=== PATIENT | female | born 1975 | race African-American/Black ===

== ENCOUNTER 2021-03-29 00:13 | Inpatient (IN) | payer OTHER ==
[~2021-03-29] VITALS: Ht 160 cm; Wt 81.7 kg
[2021-03-29] VITALS (73 sets, daily range): BP systolic 80–144; BP diastolic 56–86
[2021-03-29] MEDS ORDERED: NORVASC5 MG PO (01:34)
[2021-03-29] MEDS ORDERED: TYLENOL325 MG PO (01:34)
[2021-03-29] MEDS ORDERED: BACLOFEN 10MG T10 MG PO (01:35)
[2021-03-29] MEDS ORDERED: ARGINAID POWDE1 EACH PO (01:35)
[2021-03-29] MEDS ORDERED: WELLBUTRIN XL150 MG PO (01:37)
[2021-03-29] MEDS ORDERED: DALFAMPRIDINE E10 MG PO (01:38)
[2021-03-29] MEDS ORDERED: CRANBERRY450 M2 PO (01:38)
[2021-03-29] MEDS ORDERED: CLONAZEPAM 0.50.5 M1 PO (01:38)
[2021-03-29] MEDS ORDERED: DERMACERIN CRE454 GM TOP (01:39)
[2021-03-29] MEDS ORDERED: IRON325 PO (01:40)
[2021-03-29] MEDS ORDERED: DULOXETINE HCL20 MG PO (01:40)
[2021-03-29] MEDS ORDERED: FUROSEMIDE 20 M20 MG PO (01:41)
[2021-03-29] MEDS ORDERED: GABAPENTIN800 M1 PO (01:41)
[2021-03-29] MEDS ORDERED: ZESTRIL10 MG PO (01:42)
[2021-03-29] MEDS ORDERED: LOPERAMIDE2 MG PO (01:42)
[2021-03-29] MEDS ORDERED: MEDROXYPROGESTE10 MG PO (01:43)
[2021-03-29] MEDS ORDERED: MILK OF MA400 MG/5 M PO (01:43)
[2021-03-29] MEDS ORDERED: VITRUM SENIOR1 EACH PO (01:43)
[2021-03-29 01:44] LABS: ABSOLUTE NEUTROPHILS 8.4 thou/uL (1.4-8.2); BASOPHILS 0.1 % (0.0-2.0); HEMATOCRIT 39.3 % (37.0-47.0); HEMOGLOBIN 13.1 gm/dL (12.0-15.0); MCH 31.4 pg (26.0-34.0); MCHC 33.3 g/dL (28.0-37.0); MONOCYTES 14.1 % (1.0-8.0); PLATELET COUNT 278 thou/uL (150-400); POLYS 80.8 % (36.0-66.0); RBC 4.18 mil/uL (4.20-5.00); WBC 10.4 thou/uL (4.0-11.0)
[2021-03-29] MEDS ORDERED: OXYBUTYNIN 5 MG5 M2 PO (01:44)
[2021-03-29] MEDS ORDERED: PERCOCET 7.5-31 EAC1 PO (01:44)
[2021-03-29] MEDS ORDERED: POTASSIUM CHLO10 MEQ PO (01:45)
[2021-03-29 01:46] LABS: CALCIUM 8.8 mg/dL (8.5-10.1); CREATININE 0.7 mg/dL (0.6-1.0); POTASSIUM 4.5 mmol/L (3.5-5.1)
[2021-03-29] MEDS ORDERED: FLOMAX0.4 MG PO (01:46)
[2021-03-29] MEDS ORDERED: RISPERDAL4 M1 PO (01:46)
[2021-03-29] MEDS ORDERED: TRAMADOL 50 MG50 MG PO (01:46)
[2021-03-29] MEDS ORDERED: VITAMIN C500 M1 PO (01:47)
[2021-03-29] MEDS ORDERED: TRAZODONE HCL50 MG PO (01:47)
[2021-03-29 01:51] LABS: URINE BILIRUBIN 1+ (Negative); URINE BLOOD TRACE (Negative); URINE CLARITY SL CLOUDY; URINE COLOR ORANGE; URINE GLUCOSE-RANDOM* NEGATIVE (Negative); URINE KETONES NEGATIVE (Negative); URINE LEUKOCYTES-REFLEX TRACE (Negative); URINE PROTEIN (DIPSTICK) TRACE (Negative); URINE SPECIFIC GRAVITY >= 1.030 (1.005-1.035)
[2021-03-29 01:52] LABS: ALBUMIN 2.6 g/dL (3.4-5.0); TOTAL BILIRUBIN 0.8 mg/dL (0.2-1.0); TOTAL PROTEIN 6.5 g/dL (6.4-8.2)
[2021-03-29 01:54] LABS: URINE NITRITE-REFLEX POSITIVE (Negative)
[2021-03-29 02:02] LABS: CALCIUM OXALATE 0-3 Few /LPF (None Seen); HYALINE CASTS 0-3 Few /LPF (None Seen); MUCUS 0-3 Light strn/LPF (None Seen); SQUAMOUS 0-3 Few /LPF (0-3); URINE RBC 1-2 Rare /HPF (NONE SEEN); URINE WBC-REFLEX 0-5 Rare /HPF (0-5)
[2021-03-29 02:14] LABS: APTT 24.1 Seconds (24.5-32.8); INR 1.2; PROTIME 12.1 Seconds (9.3-11.4)
[2021-03-29 04:34] LABS: AMP/METHAMP Negative (Negative); BARBITURATES Negative (Negative); BENZODIAZEPINES Negative (Negative); COCAINE Negative (Negative); METHADONE Negative (Negative); OPIATES Negative (Negative); PCP Negative (Negative)
[2021-03-29 04:40] LABS: BE(vivo) -2.2 mmol/L (-2 to +3); HCO3 21.7 mmol/L (22.0-26.0); PCO2 34.6 mmHg (35.0-45.0); PO2 272.6 mmHg (80.0-100.0); pH 7.415 (7.360-7.450); sO2 99.6 % (92.0-98.0)
--- NOTE | 2021-03-29 06:33 | NUR ---
Pt transported from ED to ICU room 244 @ 0430 with RN/RT/and vent with versed drip continued to floor. Pt's admission started but pt unable to sign due to being sedated and unresponsive. spoke to Marquita Velásquez (RN) from her facility that knows her well. Marquita states that pt only contact is her mother but she is unable to contact her because the phone number may not be correct. SHe states that pt is total care at her facilty and PT/OT. she states that pt smokes and has someone help her smoke d/t her MS. Juárez will get ahold of their CM and will be in close contact with us.
--- NOTE | 2021-03-29 09:00 | NUR ---
chart review. discussed during am rounds. unable to visited with rubina kevin on vent. cm called her mom jean # [phone], cell # [phone]. she was unaware that her daughter was in the hospital. " use cell phone it works, home phone doesnt always work. lives at [facility] for almost a year. uses motorized scooter, i bring her cig and pay her rent, dpoa was done at [facility]. i taking care of grandson 12years old and she has daughter who 17 years old. havent been able to visit with her with covid no visitor at [facility]. i will be up to see her and would like to talk with nurse"/jean. will cont following as needed for dc needs.
--- NOTE | 2021-03-29 09:42 | NUR ---
Assess due to sepsis. Hx MS, admitted from long-term. Required intubation for airway protection. ICU rounds-pt alert, following commands and will likely be extubated soon. NH records show pt eats regular diet. Has small shearing breakdown. Wt hx unknown. BG are elevated over 200. Follow for timely extubation and diet advance, may need carb control diet. Low nutrition risk
[2021-03-29] MEDS ORDERED: AAA-MED REC COMPLETE PO (09:49)
--- NOTE | 2021-03-29 11:39 | NUR ---
SPOKE W/ GRACE FROM [facility], UPDATED ON PT CONDITION AND TREATMENT. ALSO SPOKE W/ PT'S MOTHER, KRISTYN, UPDATED ON PT CONDITION AND TREATMENT. KRISTYN STATED SHE WOULD BE UP TO VISIT SOON. KRISTYN STATED THAT SHE CARES FOR THE PT'S TEENAGE CHILDREN, AGES 12 AND 14. PROVIDED W/ EDUCATION REGARDING VISITING RESTRICTIONS AND VISITING HOURS. KRISTYN VERBALIZED UNDERSTANDING. REASSURANCE AND EMOTIONAL SUPPORT PROVIDED.
--- NOTE | 2021-03-29 16:48 | NUR ---
PT REMAINS INTUBATED, LIGHTLY SEDATED. PT WILL OPEN EYES TO VOICE, FOLLOW COMMANDS, AND NOD HEAD YES/NO APPROPRIATELY. FIO2 TITRATED DOWN TO 30% TODAY. VS REMAIN STABLE THROUGHOUT THE DAY WITHOUT THE NEED FOR PRESSORS. URINE OUTPUT ADEQUATE. CDIFF TESTING WAS NEGATIVE, BUT WATERY STOOL CONTINUES VIA FMS. OVERALL, PT PROGRESSING TOWARD GOALS.
[2021-03-30] VITALS (45 sets, daily range): BP systolic 119–170; BP diastolic 64–101
[2021-03-30 05:00] LABS: HEMATOCRIT 30.7 % (37.0-47.0); MCH 31.5 pg (26.0-34.0); MCHC 33.5 g/dL (28.0-37.0); MCV 94.1 fL (80.0-100.0); RBC 3.26 mil/uL (4.20-5.00); WBC 9.5 thou/uL (4.0-11.0)
[2021-03-30 05:05] LABS: ALBUMIN 2.1 g/dL (3.4-5.0); CALCIUM 8.5 mg/dL (8.5-10.1); CREATININE 0.3 mg/dL (0.6-1.0); PHOSPHORUS 1.8 mg/dL (2.5-4.9); TROPONIN-I 0.2 ng/mL (<0.06)
[2021-03-30 05:35] LABS: HEMOGLOBIN 10.3 gm/dL (12.0-15.0)
--- NOTE | 2021-03-30 06:12 | NUR ---
Patient making progress towards outcome goals. Oxygenation excellent with current vent settings. Vital signs and rhythm stable. Light sedation on Versed at 2 mg/HR. No restraints required. Fecal management intact with liquids stools about 100 cc. Suprapubic catheter intact savita output with sediments, 400 ml. Replacing electrolytes per protocol.
--- NOTE | 2021-03-30 07:27 | NUR ---
RN ASSUMED CARE OF THE PT AT 0700, TOLD BY NOC CATY CONTRERAS, TROPONIN LEVEL 0.20 NOTIFIED TO KLARISSA ORTIZ ALREADY. POTASSIUM IS RUNNING, BAG 1 OF 2, PT IS IN BED, NO COMPLAINTS, ON MINIMAL SEDATION, POSSIBLE CPAP TRIAL TODAY
--- NOTE | 2021-03-30 13:06 | HC ---
[facility] [place] [address] CONSULTATION Name: RIGOBERTO EUCEDA Room #: 244-P [facility] IN M.R.#: [id number] Admission: 03/29/21 Attend Phys: Wiley Bueno MD Discharge: Date of : 79 Report #: [id number] THIS REPORT FOR: cc: Hiren Santos MD, Dennis R MD Barry, Joseph W. MD ~ DOC #: [id number] Jake Royal MD DATE OF SERVICE: 03/29/2021 INFECTIOUS DISEASE CONSULTATION ATTENDING PHYSICIAN: ___. REASON FOR EVALUATION: Sepsis complicated by encephalopathy, likely secondary to genitourinary tract infection. HISTORY OF PRESENT ILLNESS: This is a 46-year-old woman with known multiple sclerosis. It has been complicated by neurogenic bladder. He has a longstanding suprapubic catheter in place. She is debilitated and now requires being living in a facility. At this point, she is sedated and maintained on ventilatory support. Apparently, presented to the emergency room with confusion and was found to have some fevers as well and some dyspnea. Evaluation was undertaken to look for infectious causes. Urinalysis actually was fairly unremarkable. Chest x-ray, some linear atelectasis, left upper lobe, left lower lobe without acute pneumonitis. Due to her tenuous situation, she was intubated to protect her airway. She is sedated at this point, maintained on FIO2 of 30%. She was empirically started on combination antibiotics with cefepime and vancomycin. At this point has not required pressor support. Cultures are in progress. ALLERGIES: None known. MEDICATIONS: Currently include vancomycin, enoxaparin, famotidine, cefepime, hydrocortisone, ondansetron and morphine sulfate. PAST MEDICAL HISTORY: As described above, multiple sclerosis; neurogenic bladder, longstanding suprapubic catheter, major depressive disorder. SOCIAL HISTORY: Apparently smokes cigarettes. No ethanol. No illicit drug use. FAMILY HISTORY: Noncontributory. REVIEW OF SYSTEMS: Unobtainable. [facility] [address] [place] [address] CONSULTATION Name: RIGOBERTO EUCEDA Room #: [address] [place] [address] [place] [facility].#: [id number] Admission: 03/29/21 Attend Phys: Wiley Bueno MD Discharge: Date of : 79 Report #: [id number] PHYSICAL EXAMINATION: GENERAL: She appears chronically ill. She is sedated and maintained on ventilatory support in the supine position. Appears undernourished. VITAL SIGNS: Temperature 98.7, pulse 110, respirations 15, blood pressure 114/74. SKIN: Warm, dry, no rashes. HEENT: Normocephalic. Extraocular muscles intact. ET tube in place, OG as well. NECK: Appears to be supple. LUNGS: Few scattered coarse breath sounds. HEART: Tachycardic, regular. No appreciable murmur. ABDOMEN: Mildly distended, soft. There is no overt peritoneal signs. GENITOURINARY: Deferred. LABORATORY DATA: Sputum culture in progress. Gram stain with mixed fidelina. Screening MRSA PCR surveillance was negative. Lactic acid of initially 2.1, repeat was 1.7. Initial CBC: White count of 10.4, H and H 13.1 and 39.3, and platelets of 278. Electrolytes: Sodium 141, potassium 4.5, chloride 106, bicarbonate 25, anion gap of 10, BUN and creatinine 21 and 0.7, albumin of 2.6. Total protein 6.5. Urinalysis: 3-5 white cells, 10-30 bacteria. Procalcitonin 6.40. Coronavirus testing was negative. Drug screen was negative as well. ABGs: pH 7.415, pCO2 of 34.6, pO2 of 272.6, FiO2 of 70%. Chest x-ray as described above. ASSESSMENT AND PLAN: Febrile illness with encephalopathy and the patient is certainly a risk for infectious complications, still think a complicated genitourinary tract infection associated with the suprapubic catheter, likely source, cannot exclude an aspiration either. We will continue combination of broad spectrum therapy. We have cultures pending including sputum and the urine in addition to blood. She remains quite tenuous at this point. Try to wean off support as allowed. MD TAMMY Rajan/CHINTAN <ELECTRONICALLY SIGNED> By: Jake Royal MD 03/30/21 1306 1229 0901 Jake Royal MD /nt
--- NOTE | 2021-03-30 13:30 | NUR ---
cm ntoifed by bedside nurse that need ms medication from [facility] to get to her when vent off. house rn notified quick sli[facility]. cm notified fran perdue and medication will be at the front for quick sliver to mushroom picker and bring to [facility] icu. discussed during am rounds today. was on vent, cpap trial. no anticipated dc over the weekend. dcp back to [facility].
[2021-03-31] VITALS (41 sets, daily range): BP systolic 126–159; BP diastolic 66–93
[2021-03-31 03:32] LABS: HEMATOCRIT 31.4 % (37.0-47.0); HEMOGLOBIN 10.4 gm/dL (12.0-15.0); MCH 31.2 pg (26.0-34.0); MCHC 33.1 g/dL (28.0-37.0); MCV 94.2 fL (80.0-100.0); RBC 3.33 mil/uL (4.20-5.00); RDW 12.8 % (10.5-14.5); WBC 9.4 thou/uL (4.0-11.0)
[2021-03-31 03:33] LABS: CALCIUM 8.7 mg/dL (8.5-10.1); CREATININE 0.4 mg/dL (0.6-1.0); POTASSIUM 3.7 mmol/L (3.5-5.1)
--- NOTE | 2021-03-31 04:43 | NUR ---
ASSESSMENT: PT REMAIN ALERT AND INTUBATED. DOES RESPOND TO YES/NO QUESTIONS. C/O GENERALIZED PAIN, MS GIVEN WITH GOOD RESULTS PER PT. BP ELEVATED 170/104 AT ONE TIME. ORDER FOR HYDRALAZINE PRN GIVEN. BP DECREASED TO 140/80'S BEFOREHAND. BATH GIVEN. NO SKIN BREAKDOWN, REDNESS ON BUTTOCKS. Z-ASMITA APPLIED. LOW GRADE TEMP AT THE BEGINNING OF THE SHIFT. VERSED INFUSING AT MAX DOSE OF 6MH/HR. VENT SETTINGS UNCHANGED. FMS INTACT. SUPERPUBIC CATH INTACT, PATENT WITH DK ERIN URINE WITH SEDIMENTS NOTED. SLOW PROGRESS TOWARDS DC GOALS. WILL CONTINUE TO MONITOR.
--- NOTE | 2021-03-31 20:33 | NUR ---
0730-ASSUMED CARE OF PT.--VW
[2021-04-01] VITALS (23 sets, daily range): BP systolic 104–163; BP diastolic 60–91
[2021-04-01 04:21] LABS: HEMATOCRIT 30.2 % (37.0-47.0); HEMOGLOBIN 10.3 gm/dL (12.0-15.0); MCHC 34.3 g/dL (28.0-37.0); MCV 93.4 fL (80.0-100.0); RBC 3.23 mil/uL (4.20-5.00); RDW 12.9 % (10.5-14.5); WBC 9.7 thou/uL (4.0-11.0)
--- NOTE | 2021-04-01 04:35 | NUR ---
ASSESSMENT: PT REMAIN ALERT AND ORIENT TIMES THREE. APPROPRIATELY RESPONDS TO YES AND NO QUESTIONS. INDICATE THAT PAIN IS BETTER AND THAT THE MORPHINE IS HELPFUL. SR-SB PER MONITOR. VSS, AFEBRILE. VENT SETTING UNCHANGED. INITIATED TF PER OG TUBE. LOW RESIDUALS. TF NOW RUNNING AT 40CC/HR. FMS/MILLAN INTACT. ADEQUATE AMTS OF UO. PRN HYDRALAZINE WAS NOT NEEDED THIS SHIFT. PT DID NOT GO TO SLEEP UNTIL LATE IN THE SHIFT. SLOW PROGRESS TOWARDS DC GOALS. WILL CONTINUE TO MONITOR.
[2021-04-01 04:51] LABS: CALCIUM 8.6 mg/dL (8.5-10.1); CREATININE 0.4 mg/dL (0.6-1.0)
[2021-04-01 05:00] LABS: POTASSIUM 2.9 mmol/L (3.5-5.1)
--- NOTE | 2021-04-01 10:40 | NUR ---
ASSUMED CARE OF PT AT 0700 DR. LAYNE AT BEDISE AT 0930, SHE ASKED WHY THE PATIENT HAS AN FMS IN PLACE. I TOLD HER THAT SHE ALREADY HAD BREAK DOWN ON HER BOTTOM SO WE DIDN'T WANT HER LAYING IN STOOL, SINCE SHE IS HAVING LOOSE STOOLS. SHE WAS OK WITH THAT. DR. VILLAGRAN AT BEDSIDE AT 1042, NO NEW ORDERS GIVEN
[2021-04-02] VITALS (25 sets, daily range): BP systolic 123–161; BP diastolic 59–108
[2021-04-02 05:16] LABS: HEMATOCRIT 31.9 % (37.0-47.0); HEMOGLOBIN 10.9 gm/dL (12.0-15.0); MCH 31.8 pg (26.0-34.0); MCHC 34.1 g/dL (28.0-37.0); MCV 93.2 fL (80.0-100.0); PLATELET COUNT 288 thou/uL (150-400); RBC 3.42 mil/uL (4.20-5.00); RDW 12.8 % (10.5-14.5); WBC 10.5 thou/uL (4.0-11.0)
[2021-04-02 05:20] LABS: CALCIUM 8.4 mg/dL (8.5-10.1); CREATININE 0.4 mg/dL (0.6-1.0)
[2021-04-02 06:45] LABS: ABSOLUTE NEUTROPHILS 7.4 thou/uL (1.4-8.2)
[2021-04-02 06:46] LABS: PLATELET ESTIMATE NORMAL
--- NOTE | 2021-04-02 07:35 | NUR ---
Pt did not have any urine output from suprapubic cath between 2200 and 0600. Nurse practioner notified (see meditech) twice and fluid boluses given as ordeered. At 0600 pt leaked a large amount of urine around suprapubic cath, soaking two incontinence pads, drawsheet and bottom sheet. Suprapubic catheter dc'd and replaced with #18 occitan morataya cath with 10 cc balloon. So far new suprapubic cath appears to be patent.
--- NOTE | 2021-04-02 10:34 | NUR ---
Pt now receiving enteral nutrition.
--- NOTE | 2021-04-02 10:48 | NUR ---
Pt with hyperglycemia, diarrhea so will change tube feed to vital AF 50ml/hr to meet critical care needs.
--- NOTE | 2021-04-02 12:22 | NUR ---
ONGOING ASSESSMENT: REMAINS ON VENT. NUTRITION SUPPORT. HAD CATH REPLACED LAST EVENING. CM TO CONT TO FOLLOW.
[2021-04-03] VITALS (25 sets, daily range): BP systolic 134–157; BP diastolic 62–104
[2021-04-03 05:18] LABS: HEMATOCRIT 29.1 % (37.0-47.0); HEMOGLOBIN 10.1 gm/dL (12.0-15.0); MCH 32.6 pg (26.0-34.0); MCHC 34.6 g/dL (28.0-37.0); MCV 94.4 fL (80.0-100.0); RBC 3.09 mil/uL (4.20-5.00); RDW 12.8 % (10.5-14.5); WBC 10.2 thou/uL (4.0-11.0)
[2021-04-03 06:03] LABS: CALCIUM 8.5 mg/dL (8.5-10.1); CREATININE 0.3 mg/dL (0.6-1.0)
[2021-04-03 06:08] LABS: POTASSIUM 2.9 mmol/L (3.5-5.1)
[2021-04-03 11:45] LABS: BE(vivo) 2.3 mmol/L (-2 to +3); HCO3 25.4 mmol/L (22.0-26.0); PCO2 34.2 mmHg (35.0-45.0); PO2 133.4 mmHg (80.0-100.0); pH 7.489 (7.360-7.450); sO2 98.9 % (92.0-98.0)
--- NOTE | 2021-04-03 12:10 | NUR ---
discussed during am rounds, and asked if ms medication was going to come from [facility]? # [phone]. she remains on vent, opens eyes, vent wean trial, follows commands. cm left message for fran perdue at [facility] rt MS medication. no return call yet. will cont following as needed for dc needs.
--- NOTE | 2021-04-03 13:36 | NUR ---
ASSUMED PATIENT CARE AT 0700. ALERT, FOLLOW SIMPLE COMMAND. PATIENT STRATED ON CPAP AT 1030. EXTUBATED AT 1325. TILERATED WELL ON 35 % FACE MASK. BALWINDER NOT ABLE TO PROVIDE DALFAMPRIDINE DUE TO PATIENT NO LONGER UNDER THER ARE CARE. WILL KEEP MONITOR.
[2021-04-04] VITALS (24 sets, daily range): BP systolic 121–156; BP diastolic 58–84
--- NOTE | 2021-04-04 09:54 | NUR ---
discussed during am rounds. updates sent to [facility]. extubated yesterday, o2 per nasal cannula. will cont following as needed for dc needs.
--- NOTE | 2021-04-04 15:18 | EKG ---
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
--- NOTE | 2021-04-04 18:44 | NUR ---
RN ASSUMED PT'S CARE AT 0700AM, PT IS DROWSY, PT CAN OPEN HER EYES BY VOICE, PT ANSWERS QUESTIONS SLOWLY, PT CAN FOLLOW COMMANDS, PT IS ON ROOM AIR, PT'S VS AND O2SAT ARE STABLE, PT HAS IV POTASSIUM AND MAGNESSIUM REPLACEMENT, PT DENIES PAIN AND SOB AT THIS TIME.
--- NOTE | 2021-04-04 19:34 | NUR ---
PT IS GOING TO TRANFER TO 3 TEMPLE ROOM 361, RN HAS GIVING REPORT TO RN, PT'S MOM HAS NOTIFIED .
[2021-04-04 21:40] LABS: ANION GAP 5 mmol/L (7-16); BUN < 1 mg/dL (7-18); CALCIUM 8.3 mg/dL (8.5-10.1); CHLORIDE 107 mmol/L (98-107); CO2 32 mmol/L (21-32); CREATININE 0.3 mg/dL (0.6-1.0); GLUCOSE 133 mg/dL (74-106); MAGNESIUM 2.6 mg/dL (1.8-2.4); POTASSIUM 3.5 mmol/L (3.5-5.1); SODIUM 144 mmol/L (136-145)
--- NOTE | 2021-04-04 22:06 | NUR ---
PT ARRIVED TO FLOOR. PT CHEERFUL SOFTLY SAID HELLO AND ASKED FOR DRINK, PROVIDED. COMPLIANT WITH MEDS. MILLAN INTACT. IVF INTACT. OBESE, BLE EDEMA. PT ONLY ABLE TO MOVE L HAND. BED ALARM ON.
[2021-04-05 04:58] VITALS: BP 155/73
[2021-04-05 05:51] LABS: HEMATOCRIT 32.1 % (37.0-47.0); HEMOGLOBIN 10.9 gm/dL (12.0-15.0); MCH 31.9 pg (26.0-34.0); MCHC 33.9 g/dL (28.0-37.0); RBC 3.42 mil/uL (4.20-5.00); RDW 12.6 % (10.5-14.5); WBC 8.2 thou/uL (4.0-11.0)
[2021-04-05 06:08] LABS: ALBUMIN 2.4 g/dL (3.4-5.0); CALCIUM 8.3 mg/dL (8.5-10.1); CREATININE 0.3 mg/dL (0.6-1.0); MAGNESIUM 2.3 mg/dL (1.8-2.4); POTASSIUM 3.5 mmol/L (3.5-5.1); TOTAL BILIRUBIN 0.3 mg/dL (0.2-1.0); TOTAL PROTEIN 5.8 g/dL (6.4-8.2)
[2021-04-05 07:32] VITALS: BP 160/78
[2021-04-05 10:56] VITALS: BP 147/96
--- NOTE | 2021-04-05 15:21 | NUR ---
WENDIE reviewed chart and spoke with nursing and attending physician. Pt was transferred to from ICU. Pt with hx of MS and requires assistance with ADLs. SW spoke with pt's mother, Aaliyah, via phone. Provided update. Per Aaliyah, she will be visiting pt later today and confirms plan is for pt to return to [facility] when medically stable. WENDIE is following to assist as needed with discharge planning.
[2021-04-05 16:10] VITALS: BP 154/96
[2021-04-05 19:06] VITALS: BP 134/79
--- NOTE | 2021-04-05 21:16 | NUR ---
PT RESTING IN BED. PT VISITED WITH MOTHER AND FRIEND PT HAD INCREASE FACIAL EXPRESSION AND VERBALIZATION WITH THEM. IVF INTACT. MILLAN TO DD. PT TOLERATING THIN LIQUIDS. PT CONTINUES TO ONLY BE ABLE TO MOVE L ARM. PTS MOTHER PROVIDED PULMONARY DRS OFFICE NUMBER. BED ALARM ON.
[2021-04-06 03:52] VITALS: BP 161/92
[2021-04-06 07:36] VITALS: BP 160/110
[2021-04-06 08:53] LABS: MAGNESIUM 1.8 mg/dL (1.8-2.4); POTASSIUM 3.3 mmol/L (3.5-5.1)
[2021-04-06 10:54] LABS: ABSOLUTE NEUTROPHILS 6.5 thou/uL (1.4-8.2); BASOPHILS 0.2 % (0.0-2.0); EOSINOPHILS 1.3 % (0.0-3.0); HEMATOCRIT 34.9 % (37.0-47.0); HEMOGLOBIN 12.1 gm/dL (12.0-15.0); LYMPHOCYTES 19.7 % (24.0-44.0); MCHC 34.6 g/dL (28.0-37.0); MCV 92.5 fL (80.0-100.0); MONOCYTES 7.6 % (1.0-8.0); PLATELET COUNT 375 thou/uL (150-400); POLYS 71.2 % (36.0-66.0); RBC 3.77 mil/uL (4.20-5.00); RDW 13.3 % (10.5-14.5); WBC 9.1 thou/uL (4.0-11.0)
[2021-04-06 11:04] LABS: ALBUMIN 2.6 g/dL (3.4-5.0); CALCIUM 8.5 mg/dL (8.5-10.1); CREATININE 0.3 mg/dL (0.6-1.0); POTASSIUM 3.5 mmol/L (3.5-5.1); TOTAL BILIRUBIN 0.4 mg/dL (0.2-1.0)
[2021-04-06 11:14] VITALS: BP 136/95
--- NOTE | 2021-04-06 11:37 | NUR ---
WENDIE reviewed chart and spoke with nursing and attending physician. Discussion with pt and her mother this morning regarding possible trach/peg placement. Pt has declined. Pulm to follow up with pt. WENDIE faxed clinical updated to [facility] for review. WENDIE received call from pharmacy stating that pt has not been receiving her MS medicationn (Dalfampridine ER 10mg BID) since admission. Medication is not able to be ordered through the inpatient pharmacy, but could be ordered through the outpatient pharmacy. Cost for 30-day supply is about $3000. WENDIE spoke with EDVIN Holden at [facility], to provide update. [facility] had arranged for a filter machine operator through [employer] to pick up driver pt's MS medication at [facility] last Friday, 03/30. Medications brought to [facility] via [employer] did not include Dalfampridine. Per Navin, [facility] does not have the medication in stock and is not able to order it, as pt is not currently physically in their facility. Navin states that they will be able to order it for pt when she returns. WENDIE provided clinical update. Pt would not be able to return to [facility] with a trach. Navin states they would be able to accept pt back on palliative/hospice services or as LTC if pt declines trach/peg placement. Navin will need to review clinical info prior to discharge to ensure they are able to meet pt's needs. WENDIE contacted Director of Case Mgmt to discuss with [facility] PET HOUSE SITTER and pharmacy. WENDIE is following to assist as needed with discharge planning.
[2021-04-06 12:37] LABS: URINE BILIRUBIN NEGATIVE (Negative); URINE BLOOD NEGATIVE (Negative); URINE CLARITY CLEAR; URINE COLOR YELLOW; URINE GLUCOSE-RANDOM* NEGATIVE (Negative); URINE KETONES NEGATIVE (Negative); URINE LEUKOCYTES-REFLEX TRACE (Negative); URINE NITRITE-REFLEX NEGATIVE (Negative); URINE PROTEIN (DIPSTICK) NEGATIVE (Negative); URINE SPECIFIC GRAVITY 1.015 (1.005-1.035); URINE UROBILINOGEN 0.2 E.U./dl (0.2-1.0)
[2021-04-06 15:40] VITALS: BP 137/87
--- NOTE | 2021-04-06 18:45 | NUR ---
RN ASSUMED PT'CARE AT 0700AM,PT IS A7OX2 ( PERSON AND PLACE), PT 'S VS ARE STABLE, PT STILL IS WAKNESS, SHE NEEDS HELP ADL AND MEAL TIME, PT DENIES PAIN AND SOB BY THIS TIME, PT HAS LOW POTASSUIM REPLACEMENT.
[2021-04-06 19:10] VITALS: BP 141/98
[2021-04-07 05:43] VITALS: BP 144/89
--- NOTE | 2021-04-07 07:09 | NUR ---
VSS OVERNIGHT. HEELS ELEVATED WITH PILLOWS, PRATHO BOOTS MIGHT BE IN LINE. FOLLOWING POC WITH IVF GTT. PT STATES SHE IS TIRED AND JUST WANTS TO SLEEP. NO COMPLAINTS OF PAIN. HOURLY ROUNDING.
[2021-04-07 07:47] VITALS: BP 160/96
--- NOTE | 2021-04-07 10:09 | NUR ---
CENTRAL LINE IN APPROPRIATE POSITION. THIS PATIENT MAY BENIFIT FROM PERIPHERAL IV PLACEMENT AND REMOVAL OF CENTRAL LINE IF TWX OPERATOR IV ABX ARE NOT NECESSARY. CENTRAL LINE REMOVAL SUGGESTED TO DECREASE RISK OF BLOOD STREAM INFECTION
--- NOTE | 2021-04-07 18:31 | NUR ---
CARE TAKEN OVER THIS AM, PT ALERT AND ORIENTED X3, DROWSY BUT AROUSABLE. PT ABLE TO FOLLOW COMMANDS. SLOW AT SPEECH AND COMMAND. ON ROOM AIR, NO SIGNS OF DISTRESS NOTED. SUPERPUBIC CATHETER IN PLACE, SECURED AND PATENT. PT REPOSITION EVERY 2HOURS. FALL PRECAUTIONS IN PLACE. DENIES ANY NEEDS AT THE MOMENT. WILL CONTINUR TO MONITOR.
[2021-04-07 19:55] VITALS: BP 137/98
[2021-04-08 04:50] VITALS: BP 165/100
[2021-04-08 05:50] LABS: CALCIUM 8.4 mg/dL (8.5-10.1); CREATININE 0.4 mg/dL (0.6-1.0); POTASSIUM 3.6 mmol/L (3.5-5.1)
[2021-04-08 07:45] VITALS: BP 159/100
--- NOTE | 2021-04-08 13:21 | NUR ---
CARE TAKEN OVER THIS AM, PT ALERT AND ORIENTED X4, SLOW TO RESPONSE. ON ROOM AIR, NO SOB NOTED. DENIES ANY PAIN. REPOSITION VERY [address] CATHETER IN PLACE, PATENT AND SECURED. PT DENIES ANY NEEDS AT THE MOMENT. WILL CONTINUE TO MONITOR.
[2021-04-08 15:20] VITALS: BP 141/95
[2021-04-08 19:31] VITALS: BP 143/87
--- NOTE | 2021-04-08 23:15 | NUR ---
PT ALERT AND ORIENTED X4. VSS AFEBRILE. UNLABORED ON RA. PT REPOSITIONED Q 2 HRS. ZGARD APPLIED TO BUTTOCKS. NO DRAINAGE NOTED. MOMO AND ORAL CARE DONE. TYLENOL GIVEN FOR LEG PAIN. SHE IS SLEEPING QUIETLY PRESENTLY. NO S/S DISTRESS. BED DOWN CALL LIGHT IN REACH. BED ALARM IS ON.
--- NOTE | 2021-04-09 00:08 | NUR ---
CLARIFICATION PT HAS HAD NO C/O PAIN. TYLENOL WAS NOT GIVEN FOR LE PAIN. SHE IS SLEEPING PESENTLY. NO S/S DISTRESS.
[2021-04-09 04:50] VITALS: BP 152/98
--- NOTE | 2021-04-09 07:07 | NUR ---
PT SLEEPING. C/O PAIN TONIGHT. VSS . NO S/S DISTRESS.
[2021-04-09 07:41] VITALS: BP 149/83
--- NOTE | 2021-04-09 12:24 | NUR ---
SW reviewed chart and spoke with nursing and attending physician. Pt and mother have decided to not have trach/peg placed. Pt is now a DNR. Recommendation for comfort care/hospice made by physicians. SW met with pt at bedside. Pt is alert/orientated. SW discussed with pt the plan of care as mentioned by physicians. Pt confirmed with pt that she does not want a trach and peg. SW discussed plan for pt to return to [facility] with hospice. Pt agreeable. Pt's mother, Aaliyah, at the bedside shortly after. SW met with both pt and mother and discussed plan of care. Aaliyah states that the physicians have reached out to her and discussed pt's overall prognosis. Aaliyah requests referral to a hospice house. Pt's mother is hopeful that pt will be able to go to a hospice house. SW explained admission criteria and if pt does not meet the criteria at this time, hospice can follow at [facility] and admit to hospice house when pt is appropriate. Pt's mother verbalized understanding. Options for hospice houses provided. Pt's mother requests referral to Hospice House. Pt is agreeable with referral. SW explained process for hospice evaluation. Pt's mother requesting completion of DPOA documentation. SW explained that only [facility] DPOA for healthcare documentation can be completed here. SW updated pt's nurse and attending physician. Per attending physician, pt does have the capacity to appoint a DPOA for healthcare decisions. Form left on unit. WENDIE faxed referral to Hospice and spoke with Lynnette in intake, who states they will review and notify SW when an eval can be completed. WENDIE spoke with EDVIN Holden at [facility]. Update provided. [facility] is able to accept pt back on hospice if not appropriate for the hospice house. WENDIE is following to assist as needed with discharge planning.
[2021-04-09 16:35] VITALS: BP 151/92
[2021-04-09 20:14] VITALS: BP 136/88
--- NOTE | 2021-04-09 23:40 | NUR ---
PT IS ALERT AND ORIENTED . SHE IS QUIET AND SLEEPY. AWAKENS EASILY. ASSISTING PT WITH ADLS. TURNING Q 2 HRS. ZGARD APPLIED TO BUTTOCKS. MEDICATED WITH TYLENOL FOR C/O PAIN. SHE IS SLEEPING QUIETLY PRESENTLY. NO S/S DISTRESS. VSS. AFEBRILE. BED DOWN CALL LIGHT IN REACH . BED ALARM IS ON. WILL CONTINUE TO MONITOR PT FOR CHANGES.
[2021-04-10 04:41] VITALS: BP 140/90
--- NOTE | 2021-04-10 06:03 | NUR ---
PT ALERT X4. VSS AFEBRILE. PT GONG TO SNF AND HOSPICE WILL FOLLOW PT THERE ACCORDING TO REORT. PT HAS NO C/O THIS AM. NO S/S DISTRESS.
[2021-04-10 07:36] VITALS: BP 146/86
--- NOTE | 2021-04-10 13:02 | NUR ---
WENDIE reviewed chart and spoke with nursing and attending physician. Pt is medically stable for discharge back to [facility] with hospice today. WENDIE received call from Ria with [facility] stating they received a referral from [facility] and were requesting to do an onsite eval prior to pt's discharge. WENDIE explained that the plan was for pt to return with [facility], with the plan to transition to [facility] when pt meet admission criteria. WENDIE spoke with Fabi at [facility], who states that she has been talking with EDVIN Holden at [facility], who states they do not have a contract with [facility] and will not agree to a one time contract. [facility] is able to eval and admit pt if [facility] contacts them when pt is symptomatic. WENDIE spoke with pt's mother, Aaliyah, via phone to discuss discharge plan. Pt's mother states [facility] contacted her this morning. Pt's mother gave consent to treat. Pt's mother thought [facility] was [facility] calling her for consents. Pt's mother became very upset. WENDIE explained that pt can return to [facility] with [facility] and then transition to [facility] when appropriate. This is what pt's mother would want, as visitors are not allowed in [facility] at this time. WENDIE received voice message from Navin at [facility]. SW returned call and left voice message. Awaiting call back at this time. Also awaiting finalized discharge orders/summary. Chart copy requested. WENDIE is following to assist as needed with discharge planning.
--- NOTE | 2021-04-10 17:06 | NUR ---
REPORT GIVEN TO CATRINA NURSE AT [facility]. GAVE PT A BEDBATH, CENTRAL LINE TAKNE OUT. PT DRESSED UP IN HER PERSONAL CLOTHES. DENIES ANY NEEDS AT THE MOMENT.
[2021-04-10 18:22] VITALS: BP 141/81
== END 2021-04-10 18:28 | disposition hospice, home (50) | DRG 870 ==
LOC: ER 00:13 → EROBS 03:38 → 3W 03:38 → ICU 03:38 → 3W 04-04 20:00
PROVIDERS: Emergency Medicine; Hospitalist; Internal Medicine; Nurse Practitioner Family; Specialist; ADMIT Hospitalist; ATTEND Hospitalist
PROC: 5A1955Z Respiratory Ventilation, Greater than 96 Consecutive Hours (ICD-10-PCS; principal; 2021-03-29)
PROC: 0BH17EZ Insertion of Endotracheal Airway into Trachea, Via Natural or Artificial Opening (ICD-10-PCS; principal; 2021-03-29)
PROC: 02HV33Z Insertion of Infusion Device into Superior Vena Cava, Percutaneous Approach (ICD-10-PCS; principal; 2021-03-29)
PROC: 5A09357 Assistance with Respiratory Ventilation, Less than 24 Consecutive Hours, Continuous Positive Airway Pressure (ICD-10-PCS; 2021-04-03)
DX: A41.51 Sepsis due to Escherichia coli [E. coli] (principal); J18.9 Pneumonia, unspecified organism; E43 Unspecified severe protein-calorie malnutrition; J96.21 Acute and chronic respiratory failure with hypoxia; R65.21 Severe sepsis with septic shock; G93.40 Encephalopathy, unspecified; N39.0 Urinary tract infection, site not specified; G35 Multiple sclerosis; T83.038A Leakage of other urinary catheter, initial encounter; F32.9 Major depressive disorder, single episode, unspecified; F17.210 Nicotine dependence, cigarettes, uncomplicated; N31.9 Neuromuscular dysfunction of bladder, unspecified; N31.2 Flaccid neuropathic bladder, not elsewhere classified; Y83.8 Other surgical procedures as the cause of abnormal reaction of the patient, or of later complication, without mention of misadventure at the time of the procedure; E66.01 Morbid (severe) obesity due to excess calories; Z20.822 Contact with and (suspected) exposure to COVID-19; Z66 Do not resuscitate; Z51.5 Encounter for palliative care; Z79.899 Other long term (current) drug therapy; Z74.01 Bed confinement status; Y92.89 Other specified places as the place of occurrence of the external cause; Z68.31 Body mass index [BMI] 31.0-31.9, adult
CPT/HCPCS: 10078; 10779; 10879

== ENCOUNTER 2021-06-29 13:25 | Emergency (ER) | payer OTHER ==
[~2021-06-29] VITALS: Ht 162.6 cm; Wt 81.7 kg
--- NOTE | ~2021-06-29 | EMS ---
[facility] [address] [place] [address] EMS Patient Care Report Name: RIGOBERTO EUCEDA Room #: DEP ASHLEY Xavier#: [id number] Admission: 06/29/21 Attend Phys: Discharge: 06/29/21 Date of : [birth year] Report #: [id number] THIS REPORT FOR: //name// Report Transmitted: 07/02/2021 12:06 EMS Care Summary [place], [place]/[facility] Incident [id number] @ 06/29/2021 12:47 Incident Location [address] [place] [address] Patient RIGOBERTO EUCEDA Female, 46 Years 1975 Patient Address [address] [place] [id number] Patient History Hypertension (HTN),Depression,Multiple Sclerosis, Patient Allergies No known allergies, Patient Medications Baclofen, Amlodipine, Clonazepam, Miralax, Tamsulosin, Oxycodone/ASA, Lisinopril, Trazodone, Chief Complaint Lower Abdomen Pain Disposition Transported No Lights/[place] Dispatch Reason Sick Person Transported To [facility] Narrative pt states that her suprapubic catheter was changed about 2 weeks ago. pt states that since the catheter change she has been having lower abdominal pain. pt [facility] [address] [place] [address] EMS Patient Care Report Name: RIGOBERTO EUCEDA Room #: DEP Morenita#: [id number] Admission: 06/29/21 Attend Phys: Discharge: 06/29/21 Date of : [birth year] Report #: [id number] describes pain as cramping in nature. pt states that the pain feels like constant contractions. pt locates pain in her bladder. pt is being treated for a UTI, [facility] staff states that pt was c/o lower abdominal pain before the UTI diagnosis. upon ems arrival pt found sitting semi fowlers in bed. pt moved to stretcher by ems and NH Staff. pt secured to stretcher using seat belts. Initial Vitals @13:15P: 60,R: 18,BP: 164/106,Pain: 8/10,GCS: 15,Temp: 96.3F,SpO2: 96,Revised Trauma: 12, Assessments @13:03MENTAL:Place Oriented,Event Oriented,Person Oriented,Time Oriented,SKIN:HEENT:Eyes: Right Pupil: 3-mm,Eyes: Left Pupil: 3-mm,LUNG SOUNDS:ABDOMEN:PELVIS//GI:EXTREMITIES:Capillary Refill: Left Upper: < 2 Sec,PULSE:Radial: 2+ Normal,NEURO: Impression Urinary Tract Infection (UTI) Procedures @13:03ALS AssessmentResponse: UnchangedSucceeded Timeline 12:45,Call Received 12:45,Dispatch Notified 12:47,Dispatched 12:48,En Route 12:59,On Scene 13:03,At Patient 13:03,ALS Assessment,Response: UnchangedSucceeded, 13:12,Depart Scene 13:15,BP: 164/106 M,PULSE: 60,RR: 18 R,SPO2: 96 Ox,ETCO2: ,BG: ,PAIN: 8,GCS: 15, 13:21,At Destination 13:39,Call Closed Disclaimer v1.1 Copyright 2020 [facility] This EMS Care Summary contains data elements from the applicable legal record (which may be displayed differently). It is designed to provide pertinent information for the following purposes: continuity of care, clinical quality, and state data reporting. The complete legal record is available to ED staff and administrators of the receiving hospital in [employer]'s Patient Tracker. All data is provided "as is."
[~2021-06-29 13:25] MED LIST: AAA-MED REC COMPLETE PO; ARGINAID POWDE1 EACH PO; BACLOFEN 10MG T10 MG PO; CLONAZEPAM 0.50.5 M1 PO; CRANBERRY450 M2 PO; DALFAMPRIDINE E10 MG PO; DERMACERIN CRE454 GM TOP; DULOXETINE HCL20 MG PO; FLOMAX0.4 MG PO; FUROSEMIDE 20 M20 MG PO; GABAPENTIN800 M1 PO; IRON325 PO; LOPERAMIDE2 MG PO; MEDROXYPROGESTE10 MG PO; MILK OF MA400 MG/5 M PO; NORVASC5 MG PO; OXYBUTYNIN 5 MG5 M2 PO; PERCOCET 7.5-31 EAC1 PO; POTASSIUM CHLO10 MEQ PO; RISPERDAL4 M1 PO; TRAMADOL 50 MG50 MG PO; TRAZODONE HCL50 MG PO; TYLENOL325 MG PO; VITAMIN C500 M1 PO; VITRUM SENIOR1 EACH PO; WELLBUTRIN XL150 MG PO; ZESTRIL10 MG PO
[2021-06-29 13:55] LABS: URINE BILIRUBIN NEGATIVE (Negative); URINE BLOOD 1+ (Negative); URINE CLARITY TURBID; URINE COLOR YELLOW; URINE GLUCOSE-RANDOM* NEGATIVE (Negative); URINE KETONES NEGATIVE (Negative); URINE LEUKOCYTES-REFLEX 2+ (Negative); URINE NITRITE-REFLEX POSITIVE (Negative); URINE PROTEIN (DIPSTICK) TRACE (Negative); URINE SPECIFIC GRAVITY 1.025 (1.005-1.035)
[2021-06-29 14:19] LABS: CALCIUM OXALATE 4-10 Moderate /LPF (None Seen); CASTS None Seen /LPF (None Seen); SQUAMOUS None Seen /LPF (0-3)
[2021-06-29 14:20] LABS: URINE RBC 3-10 Few /HPF (NONE SEEN); URINE WBC-REFLEX 0-5 Rare /HPF (0-5)
[2021-06-29 15:14] VITALS: BP 127/76
== END 2021-06-29 21:37 ==
LOC: ER 13:25
PROVIDERS: Nurse Practitioner
DX: R39.89 Other symptoms and signs involving the genitourinary system (principal); Z79.899 Other long term (current) drug therapy

== ENCOUNTER 2021-09-25 12:38 | Emergency (ER) | payer OTHER ==
[~2021-09-25] VITALS: Ht 162.6 cm; Wt 88.4 kg
--- NOTE | ~2021-09-25 | EMS ---
[address] [address] EMS Patient Care Report Name: RIGOBERTO EUCEDA Room #: DEP ASHLEY Xavier#: [id number] Admission: 09/25/21 Attend Phys: Discharge: 09/25/21 Date of : [birth year] Report #: [id number] THIS REPORT FOR: //name// Report Transmitted: 09/25/2021 17:41 EMS Care Summary [place], [place]/[facility] Incident [id number] @ 09/25/2021 12:08 Incident Location [address] [place] [address] Patient RIGOBERTO EUCEDA Female, 46 Years 1975 Patient Address [address] [place], [place] [id number] Patient History Hypertension (HTN),Depression,Multiple Sclerosis, Patient Allergies No known allergies, Patient Medications Trazodone, Gabapentin, Baclofen, Acetaminophen, Amlodipine, Nitrofurantoin, Lisinopril, Oxycodone, Medroxyprogesterone, Tamoxifen, Chief Complaint UTI Pain Disposition Transported No Lights/[place] Dispatch Reason Sick Person Transported To [facility] Narrative The Nurse at [facility] said to crew that the patient has been being treated for a U.T.I for over 2 weeks and has not had any change and Pt is still with [address] [address] EMS Patient Care Report Name: RIGOBERTO EUCEDA Room #: [facility] Morenita#: [id number] Admission: 09/25/21 Attend Phys: Discharge: 09/25/21 Date of : 79 Report #: [id number] mild pain in her Vaginal area. Nurse also said that Pt Doctor wanted Patient transported to [facility] for [facility] work and evaluation of any other issue related to her U.T.I. Patient stated that she has been hurting and started having a butrning feeling in her vaginal area and she noticed this morning it was hurting more then normal. She also denied any bleeding and or any other complaints to crew on arrival and transport to the Hospital. Pt is with Mask in place . The Patient was found laying in bed at [facility] with a nurse with her and Pt is with a mask on her face due to covid 19 precautions. Pt is complaining of vaginal pain and burning that has been the same for over 2 weeks and Patient said she noticed some burning feeling this morning while she was getting up out of bed. Pt rated her pain at a 4/10 when she was evaluated by ambulance Crew. Patient is with no other complaints or injury's noted while EMT was evaluating her and Pt is alert and orientated to person place and time . Pt is with no other complaints to EMT during transport to [facility] by stretcher and secured with seat belts during transport and on arrival she was moved from Ambulance to ER room 12 by stretcher and secured by seat belts. Pt was then moved from stretcher to E.R bed and she was turned over to nursing staff . Initial Vitals @12:24P: 74,R: 16,BP: 126/70,Pain: 4/10,GCS: 15,Revised Trauma: 12, @12:33P: 76,R: 16,Pain: 4/10,GCS: 15,Revised Trauma: 12, Assessments @12:19MENTAL:Place Oriented,Time Oriented,Event Oriented,Person Oriented,SKIN:HEENT:Head/Face: No Abnormalities,Neck/Airway: No Abnormalities,LUNG SOUNDS:General: No Abnormalities,ABDOMEN:General: No Abnormalities,PELVIS//GI:Pelvis GUOther,EXTREMITIES:Capillary Refill: Right Upper: < 2 Sec,Left Arm: No Abnormalities,Right Arm: No Abnormalities,Left Leg: No Abnormalities,Right Leg: No Abnormalities,PULSE:Radial: 2+ Normal,NEURO:No Abnormalities,@12:34MENTAL:Person Oriented,Time Oriented,Place Oriented,Event Oriented,SKIN:HEENT:Head/Face: No Abnormalities,Neck/Airway: No Abnormalities,LUNG SOUNDS:General: No Abnormalities,ABDOMEN:General: No Abnormalities,PELVIS//GI:Pelvis GUOther,EXTREMITIES:Capillary Refill: Left Upper: < 2 Sec,Left Arm: No Abnormalities,Right Arm: No Abnormalities,Left Leg: No Abnormalities,Right Leg: No Abnormalities,PULSE:Radial: 2+ Normal,NEURO:No Abnormalities, Impression Urinary Tract Infection (UTI) Procedures @12:19 BLS Assessment Response: Unchanged [facility] [address] [place] [address] EMS Patient Care Report Name: RIGOBERTO EUCEDA Room #: [facility] ASHLEY Xavier#: [id number] Admission: 09/25/21 Attend Phys: Discharge: 09/25/21 Date of : 79 Report #: [id number] Timeline 12:05,Call Received 12:05,Dispatch Notified 12:08,Dispatched 12:08,En Route 12:15,On Scene 12:19,At Patient 12:19,BLS Assessment,Response: Unchanged 12:24,BP: 126/70 M,PULSE: 74,RR: 16 R,SPO2: Ox,ETCO2: ,BG: ,PAIN: 4,GCS: 15, 12:26,Depart Scene 12:33,BP: 122/ M,PULSE: 76,RR: 16 R,SPO2: Ox,ETCO2: ,BG: ,PAIN: 4,GCS: 15, 12:35,At Destination 12:44,Call Closed Disclaimer v1.1 Copyright 2020 [email or web address] This EMS Care Summary contains data elements from the applicable legal record (which may be displayed differently). It is designed to provide pertinent information for the following purposes: continuity of care, clinical quality, and state data reporting. The complete legal record is available to ED staff and administrators of the receiving hospital in [employer]'s Patient Tracker. All data is provided "as is."
[2021-09-25] MEDS ORDERED: GABAPENTIN100 MG PO (14:18)
[2021-09-25] MEDS ORDERED: MACROBID 100 M100 MG PO (14:20)
[2021-09-25] MEDS ORDERED: MIRALAX119 GM PO (14:21)
[2021-09-25] MEDS ORDERED: OXYCODONE-APAP1 TAB PO ×2 (14:24→14:25)
[2021-09-25 14:38] LABS: ABSOLUTE NEUTROPHILS 3.1 thou/uL (1.4-8.2); BASOPHILS 1.2 % (0.0-2.0); EOSINOPHILS 2.3 % (0.0-3.0); HEMATOCRIT 40.5 % (37.0-47.0); HEMOGLOBIN 13.7 gm/dL (12.0-15.0); LYMPHOCYTES 31.8 % (24.0-44.0); MCH 31.7 pg (26.0-34.0); MCHC 33.8 g/dL (28.0-37.0); MONOCYTES 6.1 % (1.0-8.0); PLATELET COUNT 291 thou/uL (150-400); POLYS 58.6 % (36.0-66.0); RBC 4.31 mil/uL (4.20-5.00); RDW 14.7 % (10.5-14.5); WBC 5.3 thou/uL (4.0-11.0)
[2021-09-25 16:08] LABS: URINE BILIRUBIN NEGATIVE (Negative); URINE BLOOD 3+ (Negative); URINE CLARITY CLEAR; URINE COLOR YELLOW; URINE GLUCOSE-RANDOM* NEGATIVE (Negative); URINE KETONES 1+ (Negative); URINE LEUKOCYTES-REFLEX TRACE (Negative); URINE NITRITE-REFLEX NEGATIVE (Negative); URINE PROTEIN (DIPSTICK) NEGATIVE (Negative); URINE UROBILINOGEN 0.2 E.U./dl (0.2-1.0)
[2021-09-25 16:43] LABS: CALCIUM 8.7 mg/dL (8.5-10.1); CREATININE 0.5 mg/dL (0.6-1.0)
[2021-09-25 16:54] LABS: CASTS None Seen /LPF (None Seen); SQUAMOUS 0-3 Few /LPF (0-3); URINE RBC 3-10 Few /HPF (NONE SEEN); URINE WBC-REFLEX 0-5 Rare /HPF (0-5)
[2021-09-25 16:55] LABS: BACTERIA-REFLEX 1-9 Few /HPF (None Seen); CRYSTALS None Seen /LPF (None Seen)
[2021-09-25 18:20] VITALS: BP 164/86
== END 2021-09-25 18:20 ==
LOC: ER 12:38
PROVIDERS: Student in an Organized Health Care Education/Training Program
DX: T83.098A Other mechanical complication of other urinary catheter, initial encounter (principal); R33.9 Retention of urine, unspecified; F32.9 Major depressive disorder, single episode, unspecified; Z79.891 Long term (current) use of opiate analgesic; Z79.899 Other long term (current) drug therapy; Z79.1 Long term (current) use of non-steroidal anti-inflammatories (NSAID)

== ENCOUNTER 2021-12-02 01:52 | Emergency (ER) | payer OTHER ==
[~2021-12-02] VITALS: Ht 162.6 cm; Wt 72.6 kg
[~2021-12-02 01:52] MED LIST changes: +GABAPENTIN100 MG PO; +MACROBID 100 M100 MG PO; +MIRALAX119 GM PO; +OXYCODONE-APAP1 TAB PO
[2021-12-02 03:03] LABS: URINE BILIRUBIN NEGATIVE (Negative); URINE BLOOD 3+ (Negative); URINE CLARITY SL CLOUDY; URINE COLOR YELLOW; URINE GLUCOSE-RANDOM* NEGATIVE (Negative); URINE KETONES 3+ (Negative); URINE NITRITE-REFLEX NEGATIVE (Negative); URINE PROTEIN (DIPSTICK) 3+ (Negative); URINE SPECIFIC GRAVITY 1.025 (1.005-1.035); URINE UROBILINOGEN 0.2 E.U./dl (0.2-1.0)
[2021-12-02 03:05] LABS: ABSOLUTE NEUTROPHILS 2.3 thou/uL (1.4-8.2); BASOPHILS 1.1 % (0.0-2.0); EOSINOPHILS 2.6 % (0.0-3.0); HEMATOCRIT 41.3 % (37.0-47.0); HEMOGLOBIN 13.6 gm/dL (12.0-15.0); LYMPHOCYTES 45.5 % (24.0-44.0); MCH 31.3 pg (26.0-34.0); MCV 94.8 fL (80.0-100.0); MONOCYTES 5.7 % (1.0-8.0); PLATELET COUNT 219 thou/uL (150-400); POLYS 45.1 % (36.0-66.0); RBC 4.36 mil/uL (4.20-5.00)
[2021-12-02 03:10] LABS: CALCIUM 9.3 mg/dL (8.5-10.1); CREATININE 0.6 mg/dL (0.6-1.0); POTASSIUM 3.7 mmol/L (3.5-5.1)
[2021-12-02 03:12] LABS: URINE LEUKOCYTES-REFLEX 1+ (Negative)
[2021-12-02 03:13] LABS: URINE REDUCING SUBSTANCE 0 %
[2021-12-02 03:14] LABS: BACTERIA-REFLEX >30 Many /HPF (None Seen); CASTS None Seen /LPF (None Seen); CRYSTALS None Seen /LPF (None Seen); MUCUS 4-6 Moderate strn/LPF (None Seen); SQUAMOUS None Seen /LPF (0-3); TRANSITIONAL EPITHEL CELL 0-3 Few /LPF (None Seen); URINE WBC-REFLEX 6-15 Few /HPF (0-5)
[2021-12-02 04:00] VITALS: BP 145/78
== END 2021-12-02 04:00 | disposition home or self-care (01) ==
LOC: ER 01:52
PROVIDERS: Student in an Organized Health Care Education/Training Program
DX: T83.098A Other mechanical complication of other urinary catheter, initial encounter (principal); F32.9 Major depressive disorder, single episode, unspecified; Z79.891 Long term (current) use of opiate analgesic; Z79.899 Other long term (current) drug therapy